=== PATIENT | female | born 1955 | race Caucasian/White ===

== ENCOUNTER 2018-06-05 07:42 | Day surgery (SDC) | payer OTHER, MEDICARE ==
[2018-06-05] MEDS ORDERED: ceFAZolin 2 GM/DEXTROSE 100 ML IV ONE (07:58)
[2018-06-05] MEDS ORDERED: LR 1,000 ML IV ONE (08:00)
--- NOTE | 2018-06-05 09:10 | PDANEPAE ---
ANE History of Present Illness renal failure ANE Past Medical History - Cardiovascular History Hx Hypertension: Yes Hx Arrhythmias: No Hx Chest Pain: No Hx Coronary Artery / Peripheral Vascular Disease: No Hx CHF / Valvular Disease: No Hx Palpitations: No - Pulmonary History Hx COPD: No Hx Asthma/Reactive Airway Disease: Yes Hx Recent Upper Respiratory Infection: No Hx Oxygen in Use at Home: No Hx Sleep Apnea: Yes Sleep Apnea Screening Result - Last Documented: Positive Pulmonary History Comment: ASTHMA TRIGGERS URI NO USE OF. INHALER PAST YR - Neurologic History Hx Cerebrovascular Accident: No Hx Seizures: No Hx Dementia: No - Endocrine History Hx Diabetes: No Hypothyroid: No Hyperthyroid: No Obesity: severe Endocrine History Comment: HYPOTHYROID - Renal History Hx Renal Disorders: Yes Renal History Comment: CKD. REMOTE UTI'S - Liver History Hx Hepatic Disorders: No - Neurological & Psychiatric Hx Hx Neurological and Psychiatric Disorders: No - Cancer History Hx Cancer: Yes Cancer History Comment: BREAST - Congenital Disorder History Hx Congenital Disorders: No - GI History GERD: moderate (controlled with meds) Hx Gastrointestinal Disorders: Yes Gastrointestinal History Comment: GERD - Other Health History Other Health History: ANEMIA. CHRONIC LOWER BACK DISCOMFORT - Chronic Pain History Chronic Pain: Yes (BACK,LT LEG) - Surgical History Prior Surgeries: RT BREAST LUMPECTOMY/REMVL LYMPH NODES 2017. BROWN. HYSTERESTOMY/BSO. TONSILLECTOMY ANE Review of Systems Review of systems is: negative Review of Systems: - Exercise capacity Exercise capacity: >=4 METS METS (RN): 4 METS ANE Patient History - Allergies Allergies/Adverse Reactions: aspirin Allergy (Verified 06/04/18 15:18) ORAL SWELLING enalaprilat [From Vasotec] Allergy (Verified 06/04/18 15:18) ORAL SWELLING iodine Allergy (Verified 06/04/18 15:18) Anaphylaxis levofloxacin [From Levaquin] Allergy (Verified 06/04/18 15:18) TREMORS Sulfa (Sulfonamide Antibiotics) Allergy (Verified 06/04/18 15:18) Rash - Home Medications Home medications: home medication list seen and reviewed Home Medications: Allopurinol DAILY 06/04/18 [Last Taken Unknown] Anastrozole DAILY 06/04/18 [Last Taken Unknown] Ferrous Sulfate DAILY 06/04/18 [Last Taken Unknown] Herbals/Supplements -Info Only DAILY 06/04/18 [Last Taken Unknown] Hydrochlorothiazide DAILY 06/04/18 [Last Taken Unknown] Losartan Potassium DAILY 06/04/18 [Last Taken Unknown] Lutein DAILY 06/04/18 [Last Taken Unknown] Omeprazole DAILY 06/04/18 [Last Taken Unknown] Potassium Cl DAILY 06/04/18 [Last Taken Unknown] SIMVASTATIN DAILY 06/04/18 [Last Taken Unknown] Slow-Mag DAILY 06/04/18 [Last Taken Unknown] Sodium Bicarbonate DAILY 06/04/18 [Last Taken Unknown] Synthroid DAILY 06/04/18 [Last Taken Unknown] - NPO status NPO Status: no food or drink >8 hours NPO Since - Liquids (Date): 06/05/18 NPO Since - Liquids (Time): 06:00 NPO Since - Solids (Date): 06/04/18 NPO Since - Solids (Time): 18:30 - Anes Hx Anes Hx: no prior problems - Smoking Hx Smoking Status: Never smoked ANE Labs/Vital Signs - Labs Result Diagrams: 06/05/18 07:58 - Vital Signs Vital Signs: reviewed preoperatively; see RN documention for details Height: 154.94 cm Weight: 92.986 kg ANE Physical Exam - Airway Neck exam: FROM Mallampati Score: Class 2 - Pulmonary Pulmonary: no respiratory distress, clear to auscultation - Cardiovascular Cardiovascular: regular rate and rhythym - ASA Status ASA Status: III ANE Anesthesia Plan Anesthesia Plan: GA w LMA
[2018-06-05] MEDS ORDERED: THROMBIN (BOVINE) 5,000 UNIT VIAL TP ONE (09:15)
[2018-06-05] MEDS ORDERED: THROMBIN (BOVINE) 20,000 UNIT SPRAY TP ONE (09:16)
[2018-06-05] MEDS ORDERED: PROTAMINE SULFATE 50 MG/5 ML VIAL IVP ONE (09:16)
[2018-06-05] MEDS ORDERED: BUPIVACAINE 0.5% 30 ML SDV ONE (09:16)
[2018-06-05] MEDS ORDERED: PAPAVERINE HCL 60 MG/2 ML SDV ONE (09:16)
--- NOTE | 2018-06-05 09:37 | PDHPUP ---
History & Physical Update H&P update statement: This history and physical update is based on an assessment of the patient which was completed after admission or registration (within 24 hours), but prior to the surgery/procedure. H&P update: H&P reviewed & patient examined, no change in patient's condition since H&P completed
[2018-06-05] MEDS ORDERED: PROPOFOL 200 MG/20 ML VIAL ONE (09:59)
[2018-06-05] MEDS ORDERED: fentaNYL 100 MCG/2 ML INJ ONE ×2 (09:59→11:33)
[2018-06-05] MEDS ORDERED: LIDOCAINE 2% 2 ML INJ ONE ×3 (10:02)
[2018-06-05] MEDS ORDERED: ePHEDrine SULFATE 25 MG/5 ML SYR ONE (10:32)
[2018-06-05] MEDS ORDERED: ONDANSETRON 4 MG/2 ML VIAL ONE (10:43)
[2018-06-05] MEDS ORDERED: DEXAMETHASONE 4 MG/ML VIAL ONE (10:43)
[2018-06-05] MEDS ORDERED: LR 500 ML IV PRN (11:04)
[2018-06-05] MEDS ORDERED: oxyCODONE IR 5 MG TAB PO PRN (11:04)
[2018-06-05] MEDS ORDERED: LABETALOL HCL 5 MG/ML 20 ML MDV IVP PRN (11:04)
[2018-06-05] MEDS ORDERED: HYDROmorphONE/DILAUDID 2 MG/ML INJ IVP PRN (11:04)
[2018-06-05] MEDS ORDERED: ACETAMINOPHEN 500 MG TAB PO PRN (11:04)
[2018-06-05] MEDS ORDERED: PROMETHAZINE HCL 25 MG/ML INJ IVP PRN (11:04)
[2018-06-05] MEDS ORDERED: DEXAMETHASONE 4 MG/ML VIAL IVP PRN (11:04)
[2018-06-05] MEDS ORDERED: ALBUTEROL 3 ML DEYVIAL IH PRN (11:04)
[2018-06-05] MEDS ORDERED: NALOXONE HCL 0.4 MG/ML INJ IVP PRN (11:04)
[2018-06-05] MEDS ORDERED: fentaNYL 100 MCG/2 ML INJ IVP PRN (11:04)
[2018-06-05] MEDS ORDERED: ONDANSETRON 4 MG/2 ML VIAL IVP PRN (11:04)
[2018-06-05] MEDS ORDERED: MEPERIDINE 25 MG/0.5 ML AMP IVP PRN (11:04)
[2018-06-05] MEDS ORDERED: METOCLOPRAMIDE 10 MG/2 ML VIAL IVP PRN (11:04)
[2018-06-05] MEDS ORDERED: PHENYLEPHRINE HCL 100 MCG/ML SYR IVP PRN (11:04)
[2018-06-05] MEDS ORDERED: HEPARIN 10,000 UNIT/10 ML MDV (1,000 UNIT/ML) ONE (11:41)
--- NOTE | 2018-06-05 12:23 | POSTOPPROG ---
Post Op Note Date of Operation: 06/05/18 Surgeon: Adria Jean Gold Letterer: Kennedy Anesthesiologist: Daphne Anesthesia: GET(General Endotracheal) Pre-op Diagnosis: ESRD Post-op Diagnosis: same Indication: same Procedure: Brachiocephalic AVF creation, exploration of forearm Findings: Small cephalic vein, good brachiocephalic AVF thrill Inf/Abcess present in the surg proc area at time of surgery?: No Depth: Superfical (Skin SQ) EBL: Minimal Bowel Protocol: N/A Clean Closure Performed: N/A
[2018-06-05] MEDS ORDERED: oxyCODONE IR 5 MG TAB ONE (12:28)
[2018-06-05] MEDS ORDERED: ACETAMINOPHEN 500 MG TAB ONE (12:28)
[2018-06-05 13:30] VITALS: BP 156/79
--- NOTE | 2018-06-05 13:46 | POSTANESTH ---
Post Anesthetic Evaluation Cardiovascular Status: Normal, Stable Respiratory Status: Normal, Stable Level of Consciousness/Mental Status: Can Participate in Eval Pain Control: Adequate, Prn Tx Ordered Nausea/Vomiting Control: Adequate, Prn Tx Ordered Complications Possibly Related to Anesthesia: None Noted
--- NOTE | 2018-06-06 22:40 | GOP ---
[f rep st] OPERATIVE REPORT DATE OF OPERATION: 06/05/2018 SURGEON: Adria Jean MD PREOPERATIVE DIAGNOSIS: Chronic renal failure. POSTOPERATIVE DIAGNOSIS: PROCEDURE PERFORMED: 1. Ultrasound vein mapping left arm. 2. Radial artery exploration in the forearm. 3. Left brachial cephalic AV fistula in the upper arm. FINDINGS: The patient is found to have an adequate radial artery distally with the cephalic vein spl it into multiple tributaries and was very small distally in the forearm and felt to be inadequate for an AV fistula creation. The upper cephalic vein was quite adequate, although deep and she had excel lent flow through the fistula. DESCRIPTION OF PROCEDURE: Patient was taken to the operating room where she received satisfactory ge neral endotracheal anesthesia by Dr. Dennison. She was placed in supine position with the left arm o utstretched on an arm board, prepped and draped in the usual sterile fashion. The veins of the arm w ere mapped. The cephalic vein distally in the forearm appeared to be marginally adequate for a bypas s. Although relatively small, the cephalic vein in the upper arm was much better. Initially, we att empted to do a radiocephalic AV fistula. The radial artery was dissected free with a vertical incisi on and the artery was dissected free from underneath the fascia and encircled with vessel loops. Exp loration of the cephalic vein then ensued and was reasonably adequate in the proximal forearm, but as it fit more distal near the radial artery exposure it became quite small, less than 2 mm with multip le branches. It was not felt to be adequate for AV fistula creation. That approach was abandoned. A curvilinear incision was made in the antecubital space and dissection extended down through the bic eps aponeurosis and the brachial artery was dissected free and controlled with vessel loops. The cep halic vein in the antecubital space was then freed up as well. Multiple branches were ligated and di vided and the vein was mobilized over to the brachial artery. This was after the distal segment of t he artery was multiply ligated and divided. End-to-side anastomosis was made to the brachial artery with a running 6-0 Prolene suture. Flow was first established through the AV fistula then back down the hand. She maintained a good radial pulse following the procedure. Flow through the fistula was quite good. Initial branches were multiply ligated and divided and the vein was mobilized up the arm for some distant. There was excellent flow in the AV fistula. That wound was infiltrated with 0.5% Marcaine. Heparin was reversed with protamine. The wounds were sprayed with some topical thrombin and closed with 3-0 Vicryl for the subcutaneous tissue and a 4-0 Monocryl subcuticular stitch for the skin. All 3 incisions were handled in a similar manner and all were infiltrated with Marcaine. She tolerated the procedure quite well and was taken to recovery room in good condition. There were no complications. Blood loss negligible. . /[id number]/MODL
== END 2018-06-05 13:50 | disposition home or self-care (01) ==
LOC: FSGY 07:42
PROVIDERS: ATTEND Surgery
PROC: 03180ZD Bypass Left Brachial Artery to Upper Arm Vein, Open Approach (ICD-10-PCS; principal; 2018-06-05 09:30)
PROC: B54NZZA Ultrasonography of Left Upper Extremity Veins, Guidance (ICD-10-PCS; principal; 2018-06-05 09:30)
DX: N18.6 End stage renal disease (principal); E03.9 Hypothyroidism, unspecified; M54.5 Low back pain; Z85.3 Personal history of malignant neoplasm of breast; Z82.49 Family history of ischemic heart disease and other diseases of the circulatory system
CPT/HCPCS: J0690; J1100; J1644; J2405; J2440; J2704; J2720; J3010

== ENCOUNTER 2018-08-27 09:08 | Day surgery (SDC) | payer OTHER, MEDICARE | END 2018-08-27 13:48 | disposition home or self-care (01) | LOC: FSGY 09:08 ==

== ENCOUNTER → 2018-09-10 | Outpatient (CLI) | payer OTHER, MEDICARE | LOC: FIMAGING 11:52 ==